=== PATIENT | female | born 1970 | race Caucasian/White ===

== ENCOUNTER → 2017-06-27 | Outpatient (CLI) | payer OTHER ==
[~2017-06-27] VITALS: Ht 162.6 cm; Wt 117.9 kg
[~2017-06-27] MED LIST: "\\\"BP MED\\\""; ABILIFY5 MG PO; ADDERALL10 M1 PO; ADDERALL10 MG PO; ADDERALL30 MG PO; BENTYL20 MG PO; CALAN80 MG PO; FLAGYL500 MG PO; FLOVENT 22120 INHALA IH; FLOVENT DISKUS1 DIS1 IH; HYDROCHLOROTH12.5 M3 PO; IMODIUM MS REL1 EACH PO; MOTRIN600 MG PO; OMEPRAZOLE; PHENERGAN12.5 M1 PO; PREMARIN1.25 MG PO; PRILOSEC20 MG PO; PROVENTIL HFA6.7 GM IH; RITALIN LA40 MG PO; RITALIN20 MG PO; TRILEPTAL; TRILEPTAL600 MG PO; VALIUM5 MG PO; VITAMIN B12 100MCG PO; VITAMIN D2000 UNI1 PO; VOLTAREN50 MG PO; ZYRTEC10 M2 PO
== END | disposition home or self-care (01) ==
LOC: AMB 11:59
PROC: 0DBE8ZX Excision of Large Intestine, Via Natural or Artificial Opening Endoscopic, Diagnostic (ICD-10-PCS; principal; 2017-06-27)
DX: R19.7 Diarrhea, unspecified (principal); K92.1 Melena; K58.9 Irritable bowel syndrome, unspecified; Z80.0 Family history of malignant neoplasm of digestive organs; I10 Essential (primary) hypertension; J45.909 Unspecified asthma, uncomplicated; E78.5 Hyperlipidemia, unspecified; R73.9 Hyperglycemia, unspecified; E66.9 Obesity, unspecified; G43.909 Migraine, unspecified, not intractable, without status migrainosus; G47.30 Sleep apnea, unspecified; K21.9 Gastro-esophageal reflux disease without esophagitis; F41.8 Other specified anxiety disorders; Z68.42 Body mass index [BMI] 45.0-49.9, adult; Z90.49 Acquired absence of other specified parts of digestive tract; Z90.710 Acquired absence of both cervix and uterus; Z98.51 Tubal ligation status; Z88.0 Allergy status to penicillin; Z82.8 Family history of other disabilities and chronic diseases leading to disablement, not elsewhere classified; Z87.891 Personal history of nicotine dependence
CPT/HCPCS: 88305; 93005; J2250; J3010